=== PATIENT | female | born 1965 | race African-American/Black ===

== ENCOUNTER 2023-04-20 15:26 | Emergency (ER) | payer OTHER ==
[2023-04-20 15:44] VITALS: BP 136/68; PULSE 91; RESP 16; TEMP 97.4; BMI 31.4
[2023-04-20 17:28] LABS: BASO % 0.8 % (0-2.0); EOS % 3.5 % (0-4.5); HEMATOCRIT 31.9 % (32.4-45.2); HEMOGLOBIN 10.2 GM/dL (10.7-15.3); MCHC 32.1 g/dl (32.0-36.0); MEAN CELL VOLUME 84.1 fl (80-96); MEAN PLT VOLUME 6.6 fl (7.5-11.1); MONO % 8.5 % (3.8-10.2); NEUT % 52.2 % (42.8-82.8); PLATELET COUNT 337 10^3/uL (134-434); RDW 15.2 % (11.6-15.6); WHITE BLOOD COUNT 5.3 K/mm3 (4.0-10.0)
[2023-04-20 18:05] LABS: POTASSIUM 4.4 mmol/L (3.5-5.1)
[2023-04-20 18:07] LABS: ALBUMIN 3.4 g/dl (3.4-5.0); BLOOD UREA NITROGEN 30.4 mg/dL (7-18)
[2023-04-20 18:11] LABS: BILIRUBIN,TOTAL 0.2 mg/dL (0.2-1); CREATININE 1.1 mg/dL (0.55-1.3); TOT PROT 8.4 g/dl (6.4-8.2)
[2023-04-20 18:12] LABS: ERYTHROCYTE SEDIMENTATION RATE 90 mm/hr (0-30)
[2023-04-20] MEDS ORDERED: PIPERACILLIN/TAZOB 3.375 GM 3.375 GM/50 ML BAG IVPB ONE (18:12)
[2023-04-20] MEDS: CYCLOPENTOLATE HCL 1% OPHTH SOLN 2 ML BOTTLE OD ONE (18:40)
[2023-04-20] MEDS ORDERED: ACETAMINOPHEN INJECTION 100 ML IVPB ONE (19:12)
[2023-04-20] MEDS: ACETAMINOPHEN 1000 MG/100 ML BAG IVPB ONE (19:49)
[2023-04-20] MEDS ORDERED: ONDANSETRON 4 MG/2 ML VIAL ONE (19:59)
[2023-04-20] MEDS: morphine CARPU-JECT 2 MG/1 ML DISP.SYRIN IVPUSH ONE (20:04)
[2023-04-20] MEDS: ONDANSETRON 4 MG/2 ML VIAL IVPUSH ONE (20:05)
== END 2023-04-20 22:21 | disposition short-term general hospital (02) ==
LOC: JER 15:26
PROC: 3E030NZ Introduction of Analgesics, Hypnotics, Sedatives into Peripheral Vein, Open Approach (ICD-10-PCS; principal; 2023-04-20)
PROC: 3E030GC Introduction of Other Therapeutic Substance into Peripheral Vein, Open Approach (ICD-10-PCS; 2023-04-20)
PROC: 3E030GC Introduction of Other Therapeutic Substance into Peripheral Vein, Open Approach (ICD-10-PCS; 2023-04-20)
DX: H53.8 Other visual disturbances (principal); R51.9 Headache, unspecified; H53.131 Sudden visual loss, right eye
CPT/HCPCS: 36415; 70450-TC; 80053; 84484; 85025; 85651; 93005; 93010; 99285-25; J0131

== ENCOUNTER 2023-05-11 22:00 | Observation (INO) | payer OTHER ==
[2023-05-12] MEDS ORDERED: ACETAMINOPHEN 325 MG TABLET (FP) ONE (01:19)
[2023-05-12] MEDS: ACETAMINOPHEN 500 MG TABLET (FP) PO ONE (01:31)
[2023-05-12 01:39] LABS: BASO % 0.7 % (0-2.0); EOS % 1.6 % (0-4.5); HEMATOCRIT 33.6 % (32.4-45.2); HEMOGLOBIN 11.3 GM/dL (10.7-15.3); LYMPH % 27.7 % (8-40); MCH 27.9 pg (25.7-33.7); MCHC 33.7 g/dl (32.0-36.0); MEAN CELL VOLUME 82.8 fl (80-96); MEAN PLT VOLUME 6.7 fl (7.5-11.1); PLATELET COUNT 349 10^3/uL (134-434); RBC 4.06 M/mm3 (3.60-5.2); RDW 15.1 % (11.6-15.6); WHITE BLOOD COUNT 7.1 K/mm3 (4.0-10.0)
[2023-05-12] MEDS: ACETAMINOPHEN 1000 MG/100 ML BAG IVPB ONE (01:45)
[2023-05-12 01:57] LABS: POTASSIUM 4.9 mmol/L (3.5-5.1)
[2023-05-12 01:59] LABS: BLOOD UREA NITROGEN 55.2 mg/dL (7-18); CALCIUM 9.7 mg/dL (8.5-10.1)
[2023-05-12 02:00] LABS: MAGNESIUM 2.8 mg/dL (1.8-2.4)
[2023-05-12 02:01] LABS: INR 1.08 (0.83-1.09); PROTHROMBIN TIME (PATIENT) 12.5 SEC (9.7-13.0)
[2023-05-12 02:03] LABS: CREATININE 1.7 mg/dL (0.55-1.3)
[2023-05-12 02:04] LABS: ACTIVATED PTT 31.7 SECONDS (25.2-36.5); ALBUMIN 3.6 g/dl (3.4-5.0); TOT PROT 8.9 g/dl (6.4-8.2)
[2023-05-12 02:05] LABS: BILIRUBIN,TOTAL 0.2 mg/dL (0.2-1)
[2023-05-12] MEDS: SODIUM CHLORIDE 0.9% 1000 ML INFUS.BAG IV ONE (02:26)
[2023-05-12] MEDS ORDERED: ACETAMINOPHEN 325 MG TABLET (FP) PO PRN (03:03)
[2023-05-12 05:14] VITALS: BMI 27.9
[2023-05-12] MEDS: INSULIN ASPART SLIDING SCALE (NOVOLOG) 1 VIAL SQ SCH (06:17)
[2023-05-12 09:08] LABS: CALCIUM 10.2 mg/dL (8.5-10.1)
[2023-05-12 09:09] LABS: BLOOD UREA NITROGEN 49.7 mg/dL (7-18)
[2023-05-12 09:12] LABS: CREATININE 1.4 mg/dL (0.55-1.3)
[2023-05-12] MEDS ORDERED: traMADol HCL 50 MG TABLET PO PRN (09:23)
[2023-05-12 10:34] VITALS: RESP 18
[2023-05-12] MEDS: OXcarbazepine 300 MG/5 ML UNIT DOSE CUPS PO SCH (10:35)
[2023-05-12] MEDS: LISINOPRIL 20 MG TABLET PO SCH (10:35)
[2023-05-12] MEDS: GABAPENTIN 300 MG CAPSULE PO SCH (15:16)
[2023-05-12 15:27] VITALS: BP 134/74; PULSE 110; TEMP 98.6
[2023-05-12] MEDS ORDERED: OXcarbazepine 300 MG TABLET (UD) PO SCH (22:00)
[2023-05-12] MEDS ORDERED: PRAZOSIN HCL 1 MG CAPSULE PO SCH (22:00)
[2023-05-12] MEDS ORDERED: ATORVASTATIN CA 80 MG TABLET (FP) PO SCH (22:00)
[2023-05-12] MEDS ORDERED: QUEtiapine FUMARATE 50 MG TABLET PO SCH (22:00)
== END 2023-05-12 19:32 ==
LOC: JER 22:00 → JERBED 05-12 02:26 → J7W 05-12 04:33
PROVIDERS: ADMIT Internal Medicine; ATTEND Internal Medicine
PROC: 3E013VG Introduction of Insulin into Subcutaneous Tissue, Percutaneous Approach (ICD-10-PCS; principal; 2023-05-12)
DX: N17.9 Acute kidney failure, unspecified (principal); R51.9 Headache, unspecified; M54.2 Cervicalgia; W18.39XA Other fall on same level, initial encounter; Y93.89 Activity, other specified; Y92.092 Bedroom in other non-institutional residence as the place of occurrence of the external cause; M79.10 Myalgia, unspecified site; I20.9 Angina pectoris, unspecified; I10 Essential (primary) hypertension; E11.40 Type 2 diabetes mellitus with diabetic neuropathy, unspecified; J45.909 Unspecified asthma, uncomplicated; F25.9 Schizoaffective disorder, unspecified; F41.9 Anxiety disorder, unspecified; G40.909 Epilepsy, unspecified, not intractable, without status epilepticus; Z79.4 Long term (current) use of insulin; G93.89 Other specified disorders of brain; I69.80 Unspecified sequelae of other cerebrovascular disease; Z99.3 Dependence on wheelchair; Z88.8 Allergy status to other drugs, medicaments and biological substances
CPT/HCPCS: 36415; 70450-TC; 71045-TC-FY; 72125-TC; 72128-TC; 72131-TC; 72170-TC-FY; 73030-TC-LT-FY; 73060-TC-LT-FY; 73070-TC-LT-FY; 73090-TC-LT-FY; 73110-TC-LT-FY; 73521-TC-FY; 80048; 80053; 82550; 82553; 82962; 83735; 85025; 85610; 85730; 93005; 93010; 96372; 99285-25; G0378

== ENCOUNTER 2023-10-13 15:32 | Emergency (ER) | payer OTHER ==
[2023-10-13 15:47] VITALS: BP 152/72; PULSE 90; RESP 18; TEMP 99; BMI 31.4
[2023-10-13] MEDS ORDERED: LIDOCAINE VISCOUS 2% ORAL/TOP 15 ML UNIT-DOSE CUP ONE (16:12)
[2023-10-13] MEDS: BENZOCAINE 20 % GEL TUBE MM ONE (16:19)
[2023-10-13] MEDS: LIDOCAINE VISCOUS 2% ORAL/TOP 15 ML UNIT-DOSE CUP MM ONE (16:19)
[2023-10-13] MEDS ORDERED: CLINDAMYCIN HCL 150 MG CAPSULE (FP) ONE (17:12)
[2023-10-13] MEDS: CLINDAMYCIN HCL 150 MG CAPSULE (FP) PO ONE (17:15)
== END 2023-10-14 04:06 | disposition home or self-care (01) ==
LOC: JER 15:32
DX: K02.9 Dental caries, unspecified (principal); K08.89 Other specified disorders of teeth and supporting structures; R68.84 Jaw pain
CPT/HCPCS: 99283-25